=== PATIENT | female | born 1980 ===

== ENCOUNTER 2017-11-29 02:24 | Emergency (ER) | payer OTHER ==
[2017-11-29 02:56] VITALS: BP 115/66; PULSE 62; RESP 18; TEMP 98.9; O2SAT 100
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
== END 2017-11-29 03:35 | disposition home or self-care (01) ==
LOC: H.ER 02:24
DX: S10.93XA Contusion of unspecified part of neck, initial encounter (principal); Y04.0XXA Assault by unarmed brawl or fight, initial encounter; Y99.0 Civilian activity done for income or pay